=== PATIENT | male | born 1995 | race Caucasian/White ===

== ENCOUNTER 2024-04-17 22:57 | Emergency (ER) | payer SELFPAY ==
[~2024-04-17] VITALS: Ht 182.9 cm; Wt 100.0 kg
[~2024-04-17 22:57] MED LIST: FAMO-135 MT; ONDA4TAB50 MT
[2024-04-17 23:04] VITALS: TEMP 99.1; O2SAT 96
[2024-04-17] MEDS: MORPHINE SULFATE 4 MG/ML INJ (FOR IV/IM USE) IV STA (23:33)
[2024-04-17] MEDS: ONDANSETRON HCL 4MG/2ML INJ IV STA (23:33)
[2024-04-18] MEDS ORDERED: IBUP-2030 MT (00:41)
[2024-04-18] MEDS: FENTANYL CITRATE/PF 50MCG/ML 2ML VIAL IV ONE (01:00)
[2024-04-18 01:42] VITALS: BP 152/79; PULSE 101; RESP 25
== END 2024-04-18 01:42 | disposition home or self-care (01) ==
LOC: ER 22:57
DX: S82.51XA Displaced fracture of medial malleolus of right tibia, initial encounter for closed fracture (principal); K21.9 Gastro-esophageal reflux disease without esophagitis; E78.00 Pure hypercholesterolemia, unspecified; F12.90 Cannabis use, unspecified, uncomplicated; W18.39XA Other fall on same level, initial encounter; Y93.89 Activity, other specified; Y92.89 Other specified places as the place of occurrence of the external cause; Y99.8 Other external cause status
CPT/HCPCS: 73590; 73610; 29515; 96374; 96375 ×2; 99285; J2405; J2270; J3010; Z7610

== ENCOUNTER 2024-04-30 13:13 | Emergency (ER) | payer MEDICAID ==
[~2024-04-30] VITALS: Ht 177.8 cm; Wt 117.0 kg
[~2024-04-30 13:13] MED LIST changes: +IBUP-2030 MT
[2024-04-30 13:17] VITALS: TEMP 98.7; O2SAT 99
[2024-04-30 19:00] VITALS: BP 121/75; PULSE 85; RESP 16; O2SAT 100
== END 2024-04-30 20:00 | disposition home or self-care (01) ==
LOC: ER 13:23
DX: S82.831A Other fracture of upper and lower end of right fibula, initial encounter for closed fracture (principal); K21.9 Gastro-esophageal reflux disease without esophagitis; E78.00 Pure hypercholesterolemia, unspecified; F12.10 Cannabis abuse, uncomplicated; X58.XXXA Exposure to other specified factors, initial encounter; Y93.89 Activity, other specified; Y92.89 Other specified places as the place of occurrence of the external cause; Y99.8 Other external cause status
CPT/HCPCS: 29515; 73590; 73610; 99284